=== PATIENT | male | born 1990 | race American Indian/Alaskan Native ===

== ENCOUNTER 2017-02-12 06:13 | Day surgery (SDC) | payer OTHER ==
[~2017-02-12 06:13] MED LIST: NORCO 5/325 PO PRN
[2017-02-12] MEDS ORDERED: NACL BACTERIOSTATIC INFILTRATI ONE (06:43)
[2017-02-12] MEDS ORDERED: MARCAINE-EPI/PF 0.5%-1:200,000 INFILTRATI ONE ×2 (07:19→09:23)
[2017-02-12] MEDS ORDERED: XYLOCAINE 1% 20 mL ONE ×2 (07:19→09:22)
[2017-02-12] MEDS ORDERED: DIPRIVAN 10 MG/ML IV ONE (07:23)
--- NOTE | 2017-02-12 07:23 | Anesthesia Consultation ---
Anesthesia Consult and Med Hx Date of service: 02/12/17 - Airway Anesthetic Teeth Evaluation: Good ROM Head & Neck: Adequate Mental/Hyoid Distance: Adequate Mallampati Class: Class I Intubation Access Assessment: Good - Pulmonary Exam CTA: Yes - Cardiac Exam Cardiac Exam: RRR - Pre-Operative Health Status ASA Pre-Surgery Classification: ASA1 Proposed Anesthetic Plan: General - Central Nervous System Hx Psychiatric Problems: No - Endocrine Hx Renal Disease: Yes (H/O kidney stones) - Hematic Hx Anemia: No Hx Sickle Cell Disease: No - Other Systems Hx Alcohol Use: Yes (socially)
--- NOTE | 2017-02-12 07:23 | Anesthesia Day of Surgery ---
Anesthesia Day of Surgery - Day of Surgery Patient Examined: Yes Patient H&P Reviewed: Yes Patient is NPO: Yes
[2017-02-12] MEDS ORDERED: DILAUDID ONE (07:24)
[2017-02-12] MEDS ORDERED: XYLOCAINE MPF 2% ONE (07:26)
[2017-02-12] MEDS ORDERED: ZEMURON IV ONE (07:27)
[2017-02-12] MEDS ORDERED: PEPCID PO NR (08:00)
[2017-02-12] MEDS ORDERED: PERCOCET 5/325 PO PRN (08:00)
[2017-02-12] MEDS ORDERED: VERSED IV NR (08:00)
[2017-02-12] MEDS ORDERED: ZOFRAN IV PRN (08:00)
[2017-02-12] MEDS ORDERED: LACTATED RINGERS 1,000 ML IV SCH (08:00)
[2017-02-12] MEDS ORDERED: ANCEF/STERILE WATER 2 GM/20 ML IV NR (08:00)
[2017-02-12] MEDS ORDERED: MARCAINE-EPI 0.5%-1:200,000 INFILTRATI ONE ×2 (08:05)
[2017-02-12] MEDS ORDERED: TORADOL IV ONE (08:05)
[2017-02-12] MEDS ORDERED: TORADOL IM ONE (08:05)
[2017-02-12] MEDS ORDERED: XYLOCAINE 1% 20 mL INFILTRATI ONE ×2 (08:05)
[2017-02-12] MEDS ORDERED: NACL 0.9% IR ONE (08:05)
[2017-02-12] MEDS ORDERED: TORADOL ONE ×2 (08:48→09:22)
[2017-02-12] MEDS ORDERED: ZOFRAN ONE (08:56)
[2017-02-12] MEDS ORDERED: LACTATED RINGERS 1,000 ML ONE (08:56)
[2017-02-12] MEDS ORDERED: ROBINUL ONE ×2 (08:57→09:08)
[2017-02-12] MEDS ORDERED: NEOSTIGMINE ONE (08:57)
[2017-02-12] MEDS ORDERED: DEMEROL ONE (10:08)
[2017-02-12] MEDS: DILAUDID IV PRN ×2 (10:35→10:50)
[2017-02-12 14:51] VITALS: BP 130/80
== END 2017-02-12 12:22 | disposition home or self-care (01) ==
LOC: OR 06:13
PROVIDERS: ATTEND Specialist
DX: K40.20 Bilateral inguinal hernia, without obstruction or gangrene, not specified as recurrent (principal); K42.9 Umbilical hernia without obstruction or gangrene; D17.6 Benign lipomatous neoplasm of spermatic cord; Z72.89 Other problems related to lifestyle; Z98.890 Other specified postprocedural states
CPT/HCPCS: 49505; 49585; C1726; C1781; J1170; J1885; J2175; J2250; J2405; J2704; J2710; J7120